=== PATIENT | male | born 1955 | race Asian ===

== ENCOUNTER 2017-06-15 11:57 | Day surgery (SDC) | payer OTHER ==
[~2017-06-15] VITALS: Ht 154.9 cm; Wt 73.7 kg
[2017-06-15] MEDS ORDERED: OMEPRAZOLE (12:39)
[2017-06-15] MEDS ORDERED: CHOLESTEROL MED (12:39)
[2017-06-15 12:41] VITALS: Ht 154.9 cm; Wt 73.7 kg
[2017-06-15 13:46] VITALS: BP 136/84; PULSE 71; RESP 18
--- NOTE | 2017-06-15 14:20 | OPPN ---
Date/Time of Note Date/Time of Note DATE: 06/15/17 TIME: 14:19 Operative Report Preoperative Diagnosis Screening Postoperative Diagnosis 3 sigmoid polyps were removed using snare and electrocautery Right colon polyp was removed using biopsy forceps Internal hemorrhoids Operation/Procedure Performed Colonoscopy biopsy and polypectomy Surgeon see signature line esl instructional assistant None Anesthesia: moderate sedation Estimated blood loss: none Transfusion Required none Specimen Colon polyps Grafts/Implants none Complications none FARHAT ROSS MD Jun 15, 2017 14:20
[2017-06-15] MEDS ORDERED: FENTAnyl 50 MCG/ML VIAL ONE (14:31)
[2017-06-15] MEDS ORDERED: MIDAZOLAM 1 MG/ML 2 ML INJ ONE (14:31)
[2017-06-15 14:43] VITALS: BP 114/81; PULSE 66; RESP 16
--- NOTE | 2017-06-16 03:13 | GILP ---
DATE OF PROCEDURE: NAME OF PROCEDURES: Colonoscopy, biopsy and polypectomy. SURGEON: Dr. Farhat Foster MD PREOPERATIVE DIAGNOSIS: Screening colonoscopy. POSTOPERATIVE DIAGNOSES 1. Colonoscopy all the way to the cecum. 2. Three sigmoid colon polyps were removed using the snare and electrocautery. 3. Right colon polyp was removed using biopsy forceps. 4. Internal hemorrhoids. INDICATION FOR THE PROCEDURE: Mr. Holger Bell is a 62-year-old male patient who was scheduled for scre ening colonoscopy. The procedure and possible complications were well explained to the patient and the family and conse nt was obtained. DESCRIPTION OF PROCEDURE: Under the influence of fentanyl and Versed, the colonoscope was carefully introduced in the rectum. Under direct vision, it was advanced all the way to the cecum. FINDINGS: The patient had 3 sigmoid colon polyps and they were removed using snare and electrocaute ry. He had a right colon polyp and it was removed using biopsy forceps. He had internal hemorrhoid s. He tolerated the procedure very well and there was no complication from the procedure. At the end o f the procedure, he was awake with stable vital signs and he was discharged home to the care of his family. IMPRESSION: Please see postoperative diagnosis. PLAN: 1. Await histopathology report. 2. Next screening colonoscopy in 5 years. Dictated By: FARHAT DE JESUS/BENTLEY Conf#: [id number] DID#: [id number]
== END 2017-06-15 14:44 | disposition home or self-care (01) ==
LOC: GIL 11:57
PROVIDERS: ATTEND Internal Medicine Gastroenterology
DX: Z12.11 Encounter for screening for malignant neoplasm of colon (principal); D12.5 Benign neoplasm of sigmoid colon; K64.8 Other hemorrhoids
CPT/HCPCS: 45380; 88305; J2250; J3010; Z7610